=== PATIENT | female | born 1970 | race Caucasian/White ===

== ENCOUNTER 2016-10-17 04:38 | Emergency (ER) | payer SELFPAY ==
[~2016-10-17] VITALS: Wt 105.5 kg
[~2016-10-17 04:38] MED LIST: ACET500C5 PO; CEPH-443 PO
[2016-10-17] MEDS ORDERED: ONDANSETRON 4 MG INJ IV STA (04:51)
[2016-10-17] MEDS ORDERED: morphine 4 MG/ML VIAL IV STA (04:51)
[2016-10-17] MEDS ORDERED: SOD CHLORIDE 0.9% 1,000 ML IV STA (04:51)
[2016-10-17 05:26] LABS: ABNORMAL IP MESSAGE 1; ADD SCAN DIFF NO; BASOPHIL # 0.1 10^3/ul (0.0-0.1); BASOPHILS % 0.5 % (0.0-2.0); EOSINOPHILS # 0.2 10^3/ul (0.0-0.5); EOSINOPHILS % 1.8 % (0.0-7.0); HEMATOCRIT 40.4 % (37.0-47.0); HEMOGLOBIN 12.7 g/dl (12.0-16.0); LYMPHOCYTES # 2.7 10^3/ul (0.8-2.9); LYMPHOCYTES % 25.9 % (15.0-51.0); MEAN CORPUSCULAR HEMOGLOBIN 28.2 pg (29.0-33.0); MEAN CORPUSCULAR HGB CONC 31.4 g/dl (32.0-37.0); MEAN CORPUSCULAR VOLUME 89.6 fl (82.0-101.0); MEAN PLATELET VOLUME 13.6 fl (7.4-10.4); MONOCYTE # 0.7 10^3/ul (0.3-0.9); MONOCYTES % 6.7 % (0.0-11.0); NEUTROPHIL # 6.7 10^3/ul (1.6-7.5); NEUTROPHILS % 64.6 % (39.0-77.0); PLATELET COUNT 164 10^3/UL (140-415); RED BLOOD COUNT 4.51 10^6/ul (4.20-5.40); RED CELL DISTRIBUTION WIDTH 13.9 % (11.5-14.5); WHITE BLOOD COUNT 10.3 10^3/ul (4.8-10.8)
[2016-10-17 05:48] LABS: ADD UMIC YES; URINE BILIRUBIN (Dip) NEGATIVE (NEGATIVE); URINE BLOOD (Dip) 3+ (NEGATIVE); URINE COLOR LT. YELLOW (YELLOW); URINE GLUCOSE (Dip) NEGATIVE (NEGATIVE); URINE KETONES (Dip) NEGATIVE (NEGATIVE); URINE LEUKOCYTE ESTERASE (Dip) 1+ (NEGATIVE); URINE NITRITE (Dip) NEGATIVE (NEGATIVE); URINE TOTAL PROTEIN (Dip) NEGATIVE (NEGATIVE); URINE UROBILINOGEN (Dip) 0.2 E.U./dL (0.1-1.0)
[2016-10-17 05:55] LABS: ALBUMIN 4.1 g/dl (3.3-4.9); ALBUMIN/GLOBULIN RATIO 1.2; CALCIUM 10.7 mg/dl (8.4-10.2); CREATININE 0.71 mg/dl (0.44-1.00); POTASSIUM 4.2 mmol/L (3.5-5.1); TOTAL PROTEIN 7.5 g/dl (6.1-8.1)
[2016-10-17 05:58] LABS: BACTERIA,URINE OCCASIONAL; SQUAMOUS EPITHELIAL CELL,UR FEW; URINE RBCS >200 /HPF (0)
--- NOTE | 2016-10-17 07:00 | RADRPT ---
PROCEDURE: CT Abdomen and pelvis without contrast. CLINICAL INDICATION: Abdominal pain. TECHNIQUE: CT scan of the abdomen and pelvis was performed on a multi-detector high-resolution CT scanner. Contiguous axial images were obtained from the lung bases to the ischial tuberosities wit hout intravenous contrast. Coronal and sagittal reformatted images were also obtained. Images were reviewed on the PACS workstation. One or more of the following dose reduction techniques were used: - Automated exposure control. - Adjustment of the mA and/or kV according to patient size. - Use of iterative reconstruction technique. Exam CTD/vol = 23.60 mGy. Total exam DLP = 1593.15 mGy-cm. COMPARISON: None. FINDINGS: Evaluation of the lung bases demonstrates mild bibasilar atelectasis. Abdomen: The liver is normal in size. There is no focal mass or dilatation of the biliary tree. T he gallbladder is not distended. The spleen, pancreas and bilateral adrenal glands are within alona l limits. Bilateral kidneys are normal in size with no contour deforming mass identified. There ar e multiple punctate 1 mm renal calculi bilaterally. There is no radiopaque ureteral calculus identi fied. There is no hydronephrosis or hydroureter. There is no retroperitoneal adenopathy. The abdo bonnie aorta is of normal caliber. There is a small umbilical hernia containing fat. There is no bowel obstruction or free air. A nor mal appendix is identified. There is no diverticulosis or diverticulitis. There is no ascites. Pelvis: The bladder is unremarkable. The uterus and adnexa are within normal limits. There is no significant pelvic adenopathy or free fluid. Evaluation of the osseous structures demonstrates no suspicious lytic or blastic lesion. IMPRESSION: No acute abnormality identified within the abdomen and pelvis. Bilateral nonobstructing renal calculi. Small umbilical hernia containing fat. Mild bibasilar atelectasis. .Brian Knight MD, Date Time Electronically viewed and signed by .Biran Knight MD, MD on 10/17/2016 07:00 .T/
--- NOTE | 2016-10-17 07:57 | ERD ---
ER Documentation Chief Complaint Date/Time DATE: 10/17/16 TIME: 07:55 Chief Complaint AP since 0000 Right middle quadrant and n/v x6 times HPI This is a very pleasant 46-year-old female complains of right lower quadrant pain radiating to her right flank since midnight. She had nausea and 6 episodes of vomiting which are nonbilious nonbloody. No change in bowel or bladder habits she said she did have some mild burning on urination the previous 3 days. No other current complaints. Pain is mild to moderate in intensity with no exacerbating or alleviating factors. ROS All systems reviewed and are negative except as per history of present illness. Medications Home Meds Active Scripts Acetaminophen* (Tylophen*) 500 Mg Capsule, 1 CAP PO Q6H Y for PAIN AND OR ELEVATED TEMP, #20 CAP Prov:LETY ADDISON [employer] 09/18/15 Discontinued Reported Medications [none] Unknown Strength No Conflict Check 09/18/15 Discontinued Scripts Cephalexin* (Keflex*) 500 Mg Capsule, 500 MG PO QID for 7 Days, CAP Prov:LETY ADDISON [employer] 09/18/15 Allergies Allergies: Coded Allergies: No Known Allergy (Unverified , 10/17/16) PMhx/Soc Medical and Surgical Hx: pt denies Medical Hx History of Surgery: Yes (C SECTION X'S 3) Anesthesia Reaction: No Hx Neurological Disorder: No Hx Respiratory Disorders: No Hx Cardiac Disorders: No Hx Psychiatric Problems: No Hx Miscellaneous Medical Probl: No Hx Alcohol Use: No Hx Substance Use: No Hx Tobacco Use: No Smoking Status: Never smoker Physical Exam Vitals Vital Signs Date Time Temp Pulse Resp B/P Pulse Ox O2 Delivery O2 Flow Rate FiO2 10/17/16 04:45 96.7 68 20 148/95 98 Physical Exam Const: [] Head: Atraumatic Eyes: Normal Conjunctiva ENT: Normal External Ears, Nose and Mouth. Neck: Full range of motion..~ No meningismus. Resp: Clear to auscultation bilaterally Cardio: Regular rate and rhythm, no murmurs Abd: Soft, non tender, non distended. Normal bowel sounds Skin: No petechiae or rashes Back: No midline or flank tenderness Ext: No cyanosis, or edema Neur: Awake and alert Psych: Normal Mood and Affect Result Diagram: 10/17/16 0458 10/17/16 0458 Results 24 hrs Laboratory Tests Test 10/17/16 04:55 10/17/16 04:58 Urine Color LT. YELLOW Urine Clarity SLIGHTLY CLOUDY Urine pH 7.0 Urine Specific [place] 1.010 Urine Ketones NEGATIVE Urine Nitrite NEGATIVE Urine Bilirubin NEGATIVE Urine Urobilinogen 0.2 E.U./dL Urine Leukocyte Esterase 1+ Urine Microscopic RBC >200/HPF Urine Microscopic WBC 10-25/HPF Urine Squamous Epithelial Cells FEW Urine Bacteria OCCASIONAL Urine Hemoglobin 3+ Urine Glucose NEGATIVE% Urine Total Protein NEGATIVE Urine Test NEGATIVE White Blood Count 10.310^3/ul Red Blood Count 4.5110^6/ul Hemoglobin 12.7g/dl Hematocrit 40.4% Mean Corpuscular Volume 89.6fl Mean Corpuscular Hemoglobin 28.2pg Mean Corpuscular Hemoglobin Concent 31.4g/dl Red Cell Distribution Width 13.9% Platelet Count 89211^3/UL Mean Platelet Volume 13.6fl Neutrophils % 64.6% Lymphocytes % 25.9% Monocytes % 6.7% Eosinophils % 1.8% Basophils % 0.5% Nucleated Red Blood Cells % 0.0/100WBC Neutrophils # 6.710^3/ul Lymphocytes # 2.710^3/ul Monocytes # 0.710^3/ul Eosinophils # 0.210^3/ul Basophils # 0.110^3/ul Nucleated Red Blood Cells # 0.010^3/ul Sodium Level 141mmol/L Potassium Level 4.2mmol/L Chloride Level 109mmol/L Carbon Dioxide Level 25mmol/L Anion Gap 11 Blood Urea Nitrogen 20mg/dl Creatinine 0.71mg/dl Glucose Level 116mg/dl Calcium Level 10.7mg/dl Total Bilirubin 0.0mg/dl Direct Bilirubin 0.00mg/dl Indirect Bilirubin 0.0mg/dl Aspartate Amino Transf (AST/SGOT) 26IU/L Alanine Aminotransferase (ALT/SGPT) 27IU/L Alkaline Phosphatase 113IU/L Total Protein 7.5g/dl Albumin 4.1g/dl Globulin 3.40g/dl Albumin/Globulin Ratio 1.20 Lipase 146U/L Current Medications Medications (Trade) Dose Ordered Sig/Anai Route PRN Reason Start Time Stop Time Status Last Admin Dose Admin Sodium Chloride (NS) 1,000 ml @ 1,000 mls/hr Q1H STAT IV 10/17/16 04:51 10/17/16 05:50 DC 10/17/16 05:06 Morphine Sulfate (morphine) 4 mg ONCE STAT IV 10/17/16 04:51 10/17/16 04:53 DC 10/17/16 05:11 Ondansetron HCl (Zofran Inj) 4 mg ONCE STAT IV 10/17/16 04:51 10/17/16 04:53 DC 10/17/16 05:06 Procedures/MDM Medical decision-m[age] year female with flank pain and dysuria. No evidence of bile on CT however early pyelonephritis cannot be excluded. Urine culture has been sent off. Patient be discharged home with Keflex and tramadol for pain along with Zofran for nausea. She is to follow-up here in 8 hours for serial abdominal exams. Differential did include kidney stones, appendicitis, diverticulitis, but history physical examination and radiologic findings have eliminated these currently. Departure Diagnosis: Primary Impression: Abdominal pain Abdominal location: right lower quadrant Qualified Code: R10.31 - Right lower quadrant abdominal pain Condition: Stable LEE ANN RAMEY October 17, 2016 07:57
[2016-10-17] MEDS ORDERED: CEPH-443 PO (07:58)
[2016-10-17] MEDS ORDERED: KETOROLAC 30 MG INJ IV STA (07:58)
[2016-10-17] MEDS ORDERED: TRAM50TA2 PO (07:58)
[2016-10-17] MEDS ORDERED: ONDA4TAB14 PO (07:58)
[2016-10-17] MEDS ORDERED: CEFTRIAXONE 1 GM/50 ML (PMX) 50 ML IVPB ONE (08:00)
== END 2016-10-17 09:33 | disposition home or self-care (01) ==
LOC: E/R 04:38
DX: R10.31 Right lower quadrant pain (principal); R11.2 Nausea with vomiting, unspecified
CPT/HCPCS: 36415; 74176; 80053; 81001; 83690; 84703; 85025; 96374; 96375; 99285; J0696; J1885; J2270; J2405; J7030; 81003